=== PATIENT | male | born 1950 | race Hispanic/Latino ===

== ENCOUNTER 2017-01-16 15:38 | Outpatient (CLI) | payer MEDICARE ==
--- NOTE | 2017-01-17 07:31 | XRay Report ---
Left shoulder 3 views: History: Shoulder pain. Findings: Arthritic changes in the a.c. joint and glenohumeral joint. No fracture or dislocation. No soft tissue calcification. Impression: No acute fracture. Arthritic changes.
== END 2017-01-16 15:39 | disposition home or self-care (01) ==
LOC: XRAY 15:38 → SPVIMAG 15:38 → XRAY 15:39
PROVIDERS: ATTEND Orthopaedic Surgery Sports Medicine
DX: M19.012 Primary osteoarthritis, left shoulder (principal)